=== PATIENT | male | born 1960 | race Caucasian/White ===

== ENCOUNTER → 2016-11-30 | Day surgery (SDC) | payer OTHER, MEDICARE ==
[2016-11-30 12:32] LABS: HCT 43.7 % (42.0-52.0); HGB 15.3 g/dl (13.2-18.0); MCH 31.4 pg (25.0-31.0); MCV 89.5 fL (78.0-100.0); MPV 9.6 fL (6.0-9.5); RBC 4.88 M/uL (4.70-6.00); RDW 13.7 % (11.5-14.0); WBC 7.4 K/uL (4.0-10.5)
[2016-11-30 12:45] LABS: ALBUMIN 4.5 g/dL (3.5-5.0); BILIRUBIN - TOTAL 0.5 mg/dL (0.1-1.0); GLOBULIN (CALCULATION) 2.8 g/dL (2.2-4.2); TOTAL PROTEIN 7.3 g/dL (6.4-8.3)
[2016-11-30 12:49] LABS: POTASSIUM 5.3 mmol/L (3.5-5.1)
== END | disposition home or self-care (01) ==
LOC: FAS 11:29
PROVIDERS: Surgery
DX: Z12.11 Encounter for screening for malignant neoplasm of colon (principal); K63.89 Other specified diseases of intestine; K21.9 Gastro-esophageal reflux disease without esophagitis; F32.9 Major depressive disorder, single episode, unspecified; F41.9 Anxiety disorder, unspecified; F17.210 Nicotine dependence, cigarettes, uncomplicated; I10 Essential (primary) hypertension; I25.2 Old myocardial infarction; I25.119 Atherosclerotic heart disease of native coronary artery with unspecified angina pectoris; E78.00 Pure hypercholesterolemia, unspecified; E78.5 Hyperlipidemia, unspecified; G47.30 Sleep apnea, unspecified; N42.9 Disorder of prostate, unspecified; Z95.1 Presence of aortocoronary bypass graft; Z81.1 Family history of alcohol abuse and dependence; Z80.3 Family history of malignant neoplasm of breast; Z83.42 Family history of familial hypercholesterolemia; Z83.3 Family history of diabetes mellitus; Z82.49 Family history of ischemic heart disease and other diseases of the circulatory system; Z79.82 Long term (current) use of aspirin; Z79.899 Other long term (current) drug therapy; Z98.890 Other specified postprocedural states
CPT/HCPCS: 36415; 80053; J2704

== ENCOUNTER → 2020-08-17 | Day surgery (SDC) | payer OTHER, MEDICARE ==
[~2020-08-17] MED LIST: ASPIRIN EC81 MG PO; ATORVASTATIN CA40 MG PO; CYMBALTA 30MG C30 MG PO; FENOFIBRATE145 MG PO; HYDROCODON-ACE1 EAC2 PO; ISOSORBIDE MONO60 MG PO; NORVASC 10MG TA10 MG PO; OMEPRAZOLE20 M1 PO; ONE-DAILY MULT1 EACH PO; PROBIOTIC1 EACH PO; RANEXA500 MG PO; SYNTHROID25 MCG PO; TOPROL XL 50 MG50 MG PO
[2020-08-17 07:22] LABS: HCT 49.3 % (42.0-52.0); HGB 16.6 g/dl (13.2-18.0); MCH 31.6 pg (25.0-31.0); MCHC 33.7 g/dL (32.0-36.0); MCV 93.7 fL (78.0-100.0); MPV 9.5 fL (6.0-9.5); RBC 5.26 M/uL (4.70-6.00); RDW 12.7 % (11.5-14.0); WBC 8.7 K/uL (4.0-10.5)
[2020-08-17 07:40] LABS: ALBUMIN 3.6 g/dL (3.4-5.0); BILIRUBIN - TOTAL 0.4 mg/dL (0.2-1.0); BUN/CREAT RATIO (CALC) 18.9 RATIO; CREATININE 0.95 mg/dL (0.67-1.17); GLOBULIN (CALCULATION) 3.7 g/dL; POTASSIUM 4.1 mmol/L (3.5-5.1); TOTAL PROTEIN 7.3 g/dL (6.4-8.2)
== END | disposition home or self-care (01) ==
LOC: FAS 06:38
PROVIDERS: Surgery
DX: J38.7 Other diseases of larynx (principal); K29.70 Gastritis, unspecified, without bleeding; R13.10 Dysphagia, unspecified; I25.10 Atherosclerotic heart disease of native coronary artery without angina pectoris; K21.9 Gastro-esophageal reflux disease without esophagitis; I10 Essential (primary) hypertension; E78.00 Pure hypercholesterolemia, unspecified; E03.9 Hypothyroidism, unspecified; F32.9 Major depressive disorder, single episode, unspecified; F17.210 Nicotine dependence, cigarettes, uncomplicated; Z95.1 Presence of aortocoronary bypass graft; Z79.82 Long term (current) use of aspirin
CPT/HCPCS: 36415; 80053; J2250; J2704; J7120